=== PATIENT | female | born 1965 | race Asian ===

== ENCOUNTER 2018-08-11 00:23 | Emergency (ER) | payer SELFPAY ==
[2018-08-11] MEDS ORDERED: Ondansetron 4 MG/2 ML SDV IVPUSH ONE (00:52)
[2018-08-11] MEDS ORDERED: HYDROmorphone 1 MG/ML Syringe IVPUSH STA (00:52)
--- NOTE | 2018-08-11 00:55 | EDM.PDOC ---
ED HPI GENERAL MEDICAL PROBLEM - General Chief Complaint: Abdominal Pain Stated Complaint: ABDOMINAL PAIN Time Seen by Provider: 08/11/18 00:40 Source of Information: Reports: Patient, Family (, son), RN Notes Reviewed History Limitations: Reports: Language Barrier (Son as technician anatomic pathology, although likely understands some persian, as well) - History of Present Illness INITIAL COMMENTS - FREE TEXT/NARRATIVE: The patient does not speak or understand Macedonian. Her son, who speaks Macedonian well, is translating for both the patient and her , however, the patient' s also appears to at least understand some Macedonian. According to the patient's son, the patient developed generalized abdominal pain around 20:00 yesterday, 08/10/2018. It has been getting progressively worse. It is crampy in character, and constant. She has not identified any modifiers. No nausea or vomiting, she had some watery, non- bloody diarrhea around 22:00. No recent fever. No urinary symptoms or back pain. No prior similar symptoms. The patient took one tablet of Pepto-Bismol around 20:00. It did not help her symptoms. Her last oral solid food was around noon yesterday, 08/10/2018. The patient does not have a PCP or Cager Operator. Bilateral Abdomen Pain Score (Numeric/FACES): 6 - Related Data Allergies Allergy/AdvReac Type Severity Reaction Status Date / Time No Known Allergies Allergy Verified 08/11/18 00:26 Home Meds: Home Meds . [No Known Home Meds] 08/11/18 [History] Past Medical History - Past Health History Medical/Surgical History: Denies Medical/Surgical History Social & Family History - Tobacco Use Smoking Status *Q: Never Smoker - Alcohol Use Alcohol Use History: No - Recreational Drug Use Recreational Drug Use: No - Living Situation & Occupation Living situation: Reports: , with Spouse, with Family (3 kids) Occupation: Employed ([employer]) ED ROS GENERAL - Review of Systems Review Of Systems: ROS reveals no pertinent complaints other than HPI. ED EXAM, GI/ABD - Physical Exam Exam: See Below Exam Limited By: No Limitations General Appearance: Alert, WD/WN, Mild Distress (Appears uncomfortable) Eyes: Bilateral: Normal Appearance, EOMI Ears: Normal External Exam, Hearing Grossly Normal Nose: Normal Inspection Throat/Mouth: Normal Inspection, Normal Lips, Normal Voice, No Airway Compromise Head: Atraumatic, Normocephalic Neck: Normal Inspection, Full Range of Motion Respiratory/Chest: No Respiratory Distress, Lungs Clear, Normal Breath Sounds, No Accessory Muscle Use Cardiovascular: Normal Peripheral Pulses, Regular Rate, Rhythm, No Edema, No Gallop, No JVD, No Murmur, No Rub GI/Abdominal Exam: Soft, No Organomegaly, No Distention, No Abnormal Bruit, No Mass, Tender (Mild, generalized, non-focal), Abnormal Bowel Sounds (Rushes. No tinkles.) (Female) Exam: Deferred Rectal (Female) Exam: Deferred Back Exam: Normal Inspection, Full Range of Motion. No: CVA Tenderness (L), CVA Tenderness (R) Extremities: Normal Inspection, Normal Range of Motion, No Pedal Edema, Normal Capillary Refill Neurological: Alert, No Motor/Sensory Deficits Psychiatric: Normal Affect Skin Exam: Warm, Dry, Intact, Normal Color, No Rash Course - Vital Signs Last Recorded V/S: Last Vital Signs Temp 36.3 C 08/11/18 00:26 Pulse 95 08/11/18 00:26 Resp 18 08/11/18 00:26 BP 126/90 08/11/18 00:26 Pulse Ox 98 08/11/18 00:26 - Orders/Labs/Meds Orders: Active Orders 24 hr Category Date Time Status Abdomen Pelvis w Cont [CT] Stat Exams 08/11/18 00:52 Taken Lactated Ringers [Ringers, Lactated] 1,000 ml Med 08/11/18 02:15 Active IV ASDIRECTED Medication Orders Lactated Ringer's (Ringers, Lactated) 1,000 mls @ 150 mls/hr IV ASDIRECTED JAKE Last Admin: 08/11/18 02:29 Dose: 150 mls/hr Labs: Laboratory Tests 08/11/18 08/11/18 08/11/18 Range/Units 01:03 01:03 01:03 WBC 11.78 H (3.98-10.04) K/mm3 RBC 4.42 (3.98-5.22) M/mm3 Hgb 14.0 (11.2-15.7) gm/L Hct 40.4 (34.1-44.9) % MCV 91.4 (79.4-94.8) fl MCH 31.7 (25.6-32.2) pg MCHC 34.7 (32.2-35.5) g/dl RDW Std Deviation 40.9 (36.4-46.3) fL Plt Count 246 (182-369) K/mm3 MPV 9.0 L (9.4-12.3) fl Neutrophils % (Manual) 90 H (40-60) % Band Neutrophils % 0 (0-10) % Lymphocytes % (Manual) 8 L (20-40) % Atypical Lymphs % 0 % Monocytes % (Manual) 2 (2-10) % Eosinophils % (Manual) 0 L (0.7-5.8) % Basophils % (Manual) 0 L (0.1-1.2) Platelet Estimate Adequate RBC Morph Comment Normal Sodium 138 (136-145) mEq/L Potassium 3.1 L (3.5-5.1) mEq/L Chloride 104 (98-107) mEq/L Carbon Dioxide 21 (21-32) mEq/L Anion Gap 16.1 H (5-15) BUN 5 L (7-18) mg/dL Creatinine 0.7 (0.55-1.02) mg/dL Est Cr Clr Drug Dosing TNP Estimated GFR (MDRD) > 60 (>60) mL/min BUN/Creatinine Ratio 7.1 L (14-18) Glucose 110 H (74-106) mg/dL Calcium 8.9 (8.5-10.1) mg/dL Magnesium 1.9 (1.8-2.4) mg/dl Total Bilirubin 0.3 (0.2-1.0) mg/dL AST 60 H (15-37) U/L ALT 98 H (14-59) U/L Alkaline Phosphatase 63 (46-116) U/L Total Protein 7.4 (6.4-8.2) g/dl Albumin 3.6 (3.4-5.0) g/dl Globulin 3.8 gm/dL Albumin/Globulin Ratio 1.0 (1-2) Lipase 91 (73-393) U/L Meds: Medications Generic Name Dose Route Start Last Admin Trade Name Freq PRN Reason Stop Dose Admin Lactated Ringer's 1,000 mls @ 150 mls/hr 08/11/18 02:15 08/11/18 02:29 Ringers, Lactated IV 150 mls/hr ASDIRECTED JAKE Administration Discontinued Medications Generic Name Dose Route Start Last Admin Trade Name Lucia PRN Reason Stop Dose Admin Hydromorphone HCl 0.5 mg 08/11/18 00:52 08/11/18 01:05 Dilaudid IVPUSH 08/11/18 00:53 0.5 mg ONETIME STA Administration Hydromorphone HCl 0.5 mg 08/11/18 02:14 08/11/18 02:29 Dilaudid IVPUSH 08/11/18 02:15 0.5 mg ONETIME ONE Administration Sodium Chloride 1,000 mls @ 150 mls/hr 08/11/18 01:00 08/11/18 01:06 Normal Saline IV 150 mls/hr ASDIRECTED JAKE Administration Iohexol 100 ml 08/11/18 01:56 08/11/18 01:58 Omnipaque-300 IVPUSH 08/11/18 01:57 Not Given ONETIME ONE Iopamidol 100 ml 08/11/18 01:58 08/11/18 02:22 Isovue-300 (61%) IVPUSH 08/11/18 01:59 100 ml ONETIME ONE Administration Ondansetron HCl 4 mg 08/11/18 00:52 08/11/18 01:06 Zofran IVPUSH 08/11/18 00:53 4 mg ONETIME ONE Administration - Re-Assessments/Exams Free Text/Narrative Re-Assessment/Exam: 08/11/18 00:54 The central location of her pain, and generalized, non-focal tenderness, along with possible rushes on auscultation, all suggest that the patient is suffering from a small bowel obstruction. She describes her pain as crampy, which also fits, although she describes it as constant, not coming in waves, which is not consistent. Nevertheless, I have ordered some blood work and a CT scan of her abdomen and pelvis with oral and IV contrast to evaluate. In the meantime, the patient will receive some IV Dilaudid, IV Zofran, and IV fluid. As the patient has no urinary complaints, her tenderness is not localized suprapubically, and she has no CVA tenderness, I do not see the need for a urinalysis. 08/11/18 02:02 The patient's CBC is remarkable for WBC count mildly elevated at 11.78, but with 0% bandemia. The remainder of the CBC is unremarkable. Her CMP is remarkable for potassium modestly depressed at 3.1, and a blood glucose slightly elevated at 110. The remainder of the CMP is unremarkable. Her lipase is normal at 91. The CT scan of the abdomen and pelvis is still pending. Due to the hypokalemia, I canceled the normal saline, and switched the IV fluid to LR at 150 mL/hr. 08/11/18 02:14 The patient's son tells me that the Dilaudid that she received earlier helped with her abdominal pain, although it seems to be coming back. The patient was just taken to CT scan a few moments ago. I have ordered some additional Dilaudid to be given once she returns. 08/11/18 02:31 I added a magnesium level, to make sure that the patient's hypokalemia is not due to hypomagnesemia. The magnesium level can be obtained off of blood already in the lab. 08/11/18 02:56 The magnesium level is normal at 1.9. 08/11/18 03:22 CT of the abdomen and pelvis with oral and IV contrast is read by Yazan as "Colonic ileus." 08/11/18 03:30 Test results discussed with the patient and her family. The cause of the patient 's colonic ileus is not known. Since this is the first time that this has happened, and intrinsic problem with colonic motility does not seem possible. The patient's family is adamant that the patient has not taken any medications whatsoever, however, it is possible that a food or drink that the patient consumed may have some medicinal properties, causing the ileus. Treatment is abstinence of that agent, not a promotility agent, at least not at this time. I offered to place the patient into observation, however, the patient said that she is feeling much better, and would prefer to go home. I will refer the patient to the clinic. Departure - Departure Time of Disposition: 03:32 Disposition: Home, Self-Care 01 Condition: Good Clinical Impression: Ileus, Hypokalemia - Discharge Information *PRESCRIPTION DRUG MONITORING PROGRAM REVIEWED*: Not Applicable *COPY OF PRESCRIPTION DRUG MONITORING REPORT IN PATIENT OBI: Not Applicable Referrals: Evelyn Loredo MD [Physician] - Forms: ED Department Discharge Additional Instructions: Mrs. Bruce was seen in the emergency room for generalized abdominal pain. Workup in the ER included blood work and a CT scan of her abdomen and pelvis with oral and IV contrast. Her bloodwork found her potassium to be mildly depressed at 3.1. The remainder of her blood work was unremarkable. The CT scan of her abdomen and pelvis found colonic ileus = her colon was not moving properly. The cause of her colonic ileus is unknown, but may be due to a food or drink, causing her colon to slow down. Make sure that she stays adequately hydrated. Gatorade or Powerade are best. Her ileus should improve on its own, however, if she continues to have problems , she can either follow-up with Dr. Evelyn Loredo in the clinic, or return to the ER for reevaluation. - My Orders Last 24 Hours: My Active Orders 08/11/18 00:52 Abdomen Pelvis w Cont [CT] Stat 08/11/18 02:15 Lactated Ringers [Ringers, Lactated] 1,000 ml IV ASDIRECTED - Assessment/Plan Last 24 Hours: My Active Orders 08/11/18 00:52 Abdomen Pelvis w Cont [CT] Stat 08/11/18 02:15 Lactated Ringers [Ringers, Lactated] 1,000 ml IV ASDIRECTED
[2018-08-11] MEDS ORDERED: Sodium Chloride 0.9% 1,000 ML IV SCH (01:00)
[2018-08-11] MEDS ORDERED: Iohexol 647 MG/ML 100 ML Bottle IVPUSH ONE (01:56)
[2018-08-11] MEDS ORDERED: Iopamidol 612 MG/ML 100 ML Bottle IVPUSH ONE (01:58)
[2018-08-11] MEDS ORDERED: HYDROmorphone 0.5 MG/0.5 ML Syringe IVPUSH ONE (02:14)
[2018-08-11] MEDS ORDERED: Lactated Ringers 1,000 ML IV SCH (02:15)
--- NOTE | 2018-08-13 15:30 | CT ---
CT abdomen and pelvis Technique: Multiple axial sections were obtained from above the dome of the diaphragm inferiorly through the pubic symphysis. Intravenous and oral contrast was utilized. Delayed images were obtained through the bladder. Comparison: No prior CT abdomen or pelvis exam is available. Findings: Gaseous dilatation is seen in the colon. Focal stool is noted within the right colon. This does not appear to represent an obstruction and most likely is due to mild colonic ileus. Visualized lung bases show nothing acute. Liver contains no focal abnormality. Small amount of contrast reflux is seen into the distal esophagus. Spleen appears within normal limits. Adrenal glands show no nodule. Pancreas is within normal limits. Kidneys show symmetric contrast enhancement without hydronephrosis or mass. Small low-density lesion is noted within the left kidney measuring 4 mm most likely representing minimal cyst. Gallbladder contains no calcified gallstones. Aorta shows no aneurysm. No retroperitoneal adenopathy or mesenteric abnormalities are seen. No pelvic mass or adenopathy is identified. No free fluid or inflammatory change is seen. Delayed images show contrast within the bladder. Bone window settings were reviewed which appear within normal limits. Impression: 1. Gaseous dilatation of colon with slight increase within the right colon. Findings most likely due to a colonic ileus. 2. Other incidental findings as noted above. Diagnostic code #2 I agree with preliminary report from [facility], finalized on 08/11/18, 4:20 AM Central Time
== END 2018-08-11 03:45 | disposition home or self-care (01) ==
LOC: JD.ED 00:23
DX: K56.7 Ileus, unspecified (principal); E87.6 Hypokalemia
CPT/HCPCS: 36415; 74177; 80053; 83690; 83735; 85007; 85027; 96361; 96374; 96375; 96376; 99284; J1170; J2405; J7040; J7120; Q9967